=== PATIENT | female | born 1980 | race African-American/Black ===

== ENCOUNTER 2025-03-23 09:23 | Emergency (ER) | payer MEDICAID ==
[~2025-03-23] VITALS: Ht 180.3 cm; Wt 125.0 kg
[2025-03-23 09:30] VITALS: O2SAT 100
[2025-03-23 09:53] LABS: CLARITY URINE Clear (CLEAR); COLOR URINE YELLOW (YELLOW); LEUKOCYTE ESTERASE URINE TRACE (NEGATIVE); NITRITE URINE POSITIVE (NEGATIVE); OCCULT BLOOD URINE 2+ (NEGATIVE)
[2025-03-23] MEDS: KETOROLAC 30MG/ML VIAL IM ONE (10:00)
[2025-03-23 10:01] LABS: BASOPHILS % 0.8 % (0.0-2.0); EOSINOPHILS % 1.3 % (0.0-5.0); HEMATOCRIT. 39.4 % (36.0-48.0); HEMOGLOBIN. 12.9 g/dL (12.0-16.0); LYMPHOCYTES % 20.7 % (20.0-50.0); MEAN PLATELET VOLUME 8.7 fl (7.4-10.4); MONOCYTES % 3.5 % (2.0-8.0); NEUTROPHILS % 73.7 % (40.0-76.0); PLATELET 281 x1000/uL (130-400); RED BLOOD CELL COUNT 4.69 mill/uL (4.2-5.4); RED CELL DISTRIBUTION WIDTH 15.1 % (11.6-14.6)
[2025-03-23 10:16] LABS: HCG SCREEN NEGATIVE
[2025-03-23 10:52] LABS: CREATININE 0.9 mg/dL (0.6-1.0)
[2025-03-23 10:53] LABS: UREA NITROGEN BLOOD < 5 mg/dL (9-23)
[2025-03-23 10:54] LABS: TROPONIN I HIGH SENSITIVITY < 4 ng/L (3.0-34)
[2025-03-23] MEDS ORDERED: NAPR-681 MT (10:57)
[2025-03-23 11:01] LABS: BACTERIA URINE 3+; MUCUS URINE 1+ /lpf (< = 2+); RBC URINE 0-2 /hpf (0-2); SQUAMOUS EPITHELIAL CELL URINE 2+ /lpf (RARE/1+); WBC URINE 15-25 /hpf (0-2); YEAST URINE NONE SEEN
[2025-03-23 11:09] VITALS: BP 107/70; PULSE 91; RESP 16; TEMP 36.7; O2SAT 100
[2025-03-23] MEDS: POTASSIUM CHLORIDE 20MEQ/PACKET PO ONE (11:09)
== END 2025-03-23 11:14 | disposition home or self-care (01) ==
LOC: ER 09:59
DX: R07.89 Other chest pain (principal); Z79.1 Long term (current) use of non-steroidal anti-inflammatories (NSAID); Z88.5 Allergy status to narcotic agent; Z79.899 Other long term (current) drug therapy
CPT/HCPCS: 99285; 71045; 80048; 81003; 84703; 85025; 87086; 87186; 84484; 87077; 36415; 93005; 96372; J1885